=== PATIENT | female | born 1945 | race Caucasian/White ===

== ENCOUNTER 2017-08-25 14:07 | Emergency (ER) | payer OTHER ==
[~2017-08-25] VITALS: Ht 160 cm; Wt 95.0 kg
[~2017-08-25 14:07] MED LIST: ATEN1TAB73 PO; DYAZ37.52 PO; ENDO5TAB6 PO; FIBE625T3 PO; GABA100C4 PO; GLIP2.5T6 PO; LEVO150T7 PO; LOSA25TA31 PO; POTA-243 PO; VITA-13 PO; VITA10002 PO
[2017-08-25 14:10] VITALS: BP 183/80; PULSE 125; RESP 16; TEMP 98.7; O2SAT 95
[2017-08-25 16:25] VITALS: BP 149/88; PULSE 102; RESP 18; O2SAT 98
[2017-08-25] MEDS ORDERED: SODIUM CHLOR 0.9% 1000 ML INJ 1,000 ML IV SCH (16:32)
--- NOTE | 2017-08-25 16:32 | PD ---
HPI Chief Complaint: Abdominal Pain Time Seen by Provider: 16:03 Travel History International Travel<30 days: No Contact w/Intl Traveler<30days: No Traveled to known affect area: No History of Present Illness HPI The patient is a 72-year-old female who presents to the emergency department for nausea. The patient states she developed nausea 2-3 days ago. She also complains of a few episodes of dry heaves with the nausea, also notes a few episodes of loose stool. The patient does note some intermittent left lower quadrant abdominal pain. The patient does have a history of renal cell carcinoma and is currently followed by her oncologist, Dr. Horta. 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 Palliative treatment. The patient is also going to restart chemotherapy per her report. The patient does note a history of multiple abdominal surgeries including laparoscopic repair for a ventral hernia by Dr. Aren Hedrick and previous cholecystectomy. The patient does note intermittent chills and sweats. She denies any dysuria or cough. Symptoms are moderate, there are no current alleviating or exacerbating factors. She is able to tolerate liquid intake, but has decreased appetite over the last 2-3 days. PFSH Past Medical History Arthritis: No Asthma: No Blood Disorders: No Heart Rhythm Problems: No Cancer: Yes (LEFT KIDNEY--L NEPHRECTOMY 2005) Cardiovascular Problems: No High Cholesterol: No Chemotherapy: Yes (STARTING SOON) Chest Pain: No Congestive Heart Failure: No COPD: No Diabetes: No Patient Takes Glucophage: No Endocrine: Yes Gastrointestinal Disorders: Yes (HX GERD, DIVERTICULOSIS) GERD: No Glaucoma: No Genitourinary: No Hepatitis: No Hiatal Hernia: Yes Hypertension: Yes Immune Disorder: No Medical other: No Musculoskeletal: Yes (OSTEOARTHRITIS, LUMBAR DDD, LOWER BACK/LEFT LEG PAIN) Neurologic: No Psychiatric: No Reproductive: No Respiratory: No Myocardial Infarction: No Radiation Therapy: No Sleep Apnea: No Thyroid Disease: Yes Ulcer: No ?: Not Past Surgical History AICD: No Appendectomy: No Arteriovenous Shunt: No Body Medical Devices: 40 SCREWS WITH MESH L SIDE FROM HERNIA REPAIR Cardiac Surgery: No Cholecystectomy: Yes (1959) Ear Surgery: No Endocrine Surgery: No Eye Surgery: No Genitourinary Surgery: Yes (LEFT NEPHRECTOMY 2005) Gynecologic Surgery: Yes (TUBAL LIGATION) Insulin Pump: No Joint Replacement: Yes (R KNEE) Neurologic Surgery: No Oral Surgery: Yes (TRACHEOSTOMY) Pacemaker: No Thoracic Surgery: Yes (FUNDOLIPICATION 1997) Other Surgery: Yes Social History Alcohol Use: No Tobacco Use: No (QUIT 4 YEARS AGO) Substance Use: No Allergies-Medications (Allergen,Severity, Reaction): Coded Allergies: adhesive (Unverified Allergy, Severe, 08/25/17) STERISTRIPS codeine (Unverified Allergy, Severe, ABD. SPASMS, 08/25/17) aspirin (Unverified Adverse Reaction, Severe, N/V, 08/25/17) morphine (Unverified Adverse Reaction, Severe, VOMITING, 08/25/17) *MDRO Multi-Drug Resistant Organism (Verified Adverse Reaction, Unknown, 08/25/17) MRSA 2005 Sputum and Wound Uncoded Allergies: STERI STRIPS (Allergy, Mild, 11/21/06) Reported Meds & Prescriptions Reported Meds & Active Scripts Active Zofran Odt (Ondansetron Odt) 4 Mg Tab 4 Mg SL Q6HR PRN Review of Systems Except as stated in HPI: all other systems reviewed are Neg General / Constitutional: Positive: Chills, No: Fever Cardiovascular: No: Chest Pain or Discomfort Respiratory: No: Shortness of Breath Gastrointestinal: Positive: Nausea, Vomiting, Diarrhea, Abdominal Pain Genitourinary: No: Dysuria Musculoskeletal: No: Weakness Physical Exam Narrative GENERAL: Awake, alert, very pleasant 72-year-old female who appears her stated age and is in no acute respiratory distress. SKIN: Focused skin assessment warm/dry. HEAD: Atraumatic. Normocephalic. EYES: Pupils equal and round. No scleral icterus. No injection or drainage. ENT: No nasal bleeding or discharge. Upper and lower dentures in place. NECK: Trachea midline. No JVD. CARDIOVASCULAR: Regular rate and rhythm. No murmur appreciated. Heart rate in the 80s. RESPIRATORY: No accessory muscle use. Clear to auscultation. Breath sounds equal bilaterally. GASTROINTESTINAL: Abdomen soft, well-healed midline scar. Mild tenderness left lower quadrant. MUSCULOSKELETAL: No obvious deformities. No clubbing. No cyanosis. No edema. NEUROLOGICAL: Awake and alert. No obvious cranial nerve deficits. Motor grossly within normal limits. Normal speech. PSYCHIATRIC: Appropriate mood and affect; insight and judgment normal. Data Data Last Documented VS Vital Signs Date Time Temp Pulse Resp B/P (MAP) Pulse Ox O2 Delivery O2 Flow Rate FiO2 08/25/17 16:25 102 18 149/88 (108) 98 Room Air 08/25/17 14:10 98.7 Orders Orders Complete Blood Count With Diff (08/25/17 16:32) Comprehensive Metabolic Panel (08/25/17 16:32) Lipase (08/25/17 16:32) Lactic Acid (08/25/17 16:32) Urinalysis - C+S If Indicated (08/25/17 16:32) Ct Abd/Pel W/O Iv Contrast (08/25/17 16:32) Iv Access Insert/Monitor (08/25/17 16:32) Ecg Monitoring (08/25/17 16:32) Oximetry (08/25/17 16:32) Ondansetron Inj (Zofran Inj) (08/25/17 16:45) Sodium Chlor 0.9% 1000 Ml Inj (Ns 1000 M (08/25/17 16:32) Sodium Chloride 0.9% Flush (Ns Flush) (08/25/17 16:45) Electrocardiogram (08/25/17 16:32) Famotidine Inj (Pepcid Inj) (08/25/17 16:45) Hydromorphone Pf Inj (Dilaudid Pf Inj) (08/25/17 16:45) Hydromorphone Pf Inj (Dilaudid Pf Inj) (08/25/17 18:00) Labs Laboratory Tests Test 08/25/17 17:00 08/25/17 17:30 08/25/17 18:30 White Blood Count 11.0 TH/MM3 Red Blood Count 4.02 MIL/MM3 Hemoglobin 12.4 GM/DL Hematocrit 37.2 % Mean Corpuscular Volume 92.4 FL Mean Corpuscular Hemoglobin 30.8 PG Mean Corpuscular Hemoglobin Concent 33.3 % Red Cell Distribution Width 18.4 % Platelet Count 189 TH/MM3 Mean Platelet Volume 8.7 FL Neutrophils (%) (Auto) 67.0 % Lymphocytes (%) (Auto) 21.1 % Monocytes (%) (Auto) 8.8 % Eosinophils (%) (Auto) 2.3 % Basophils (%) (Auto) 0.8 % Neutrophils # (Auto) 7.4 TH/MM3 Lymphocytes # (Auto) 2.3 TH/MM3 Monocytes # (Auto) 1.0 TH/MM3 Eosinophils # (Auto) 0.3 TH/MM3 Basophils # (Auto) 0.1 TH/MM3 CBC Comment DIFF FINAL Differential Comment Blood Urea Nitrogen 9 MG/DL Creatinine 0.63 MG/DL Random Glucose 97 MG/DL Total Protein 7.5 GM/DL Albumin 3.7 GM/DL Calcium Level 10.5 MG/DL Alkaline Phosphatase 78 U/L Aspartate Amino Transf (AST/SGOT) 43 U/L Alanine Aminotransferase (ALT/SGPT) 30 U/L Total Bilirubin 0.8 MG/DL Sodium Level 135 MEQ/L Potassium Level 3.8 MEQ/L Chloride Level 100 MEQ/L Carbon Dioxide Level 25.0 MEQ/L Anion Gap 10 MEQ/L Estimat Glomerular Filtration Rate 93 ML/MIN Lipase 290 U/L Lactic Acid Level 1.4 mmol/L Urine Color LIGHT-YELLOW Urine Turbidity CLEAR Urine pH 7.0 Urine Specific [place] 1.004 Urine Protein NEG mg/dL Urine Glucose (UA) NEG mg/dL Urine Ketones NEG mg/dL Urine Occult Blood NEG Urine Nitrite NEG Urine Bilirubin NEG Urine Urobilinogen LESS THAN 2.0 MG/DL Urine Leukocyte Esterase NEG Microscopic Urinalysis Comment CULT NOT INDICATED MDM Medical Decision Making Medical Screen Exam Complete: Yes Emergency Medical Condition: Yes Medical Record Reviewed: Yes Interpretation(s) EKG reveals normal sinus rhythm with a rate of 78. Laboratory Tests Test 08/25/17 17:00 08/25/17 17:30 White Blood Count 11.0 TH/MM3 Red Blood Count 4.02 MIL/MM3 Hemoglobin 12.4 GM/DL Hematocrit 37.2 % Mean Corpuscular Volume 92.4 FL Mean Corpuscular Hemoglobin 30.8 PG Mean Corpuscular Hemoglobin Concent 33.3 % Red Cell Distribution Width 18.4 % Platelet Count 189 TH/MM3 Mean Platelet Volume 8.7 FL Neutrophils (%) (Auto) 67.0 % Lymphocytes (%) (Auto) 21.1 % Monocytes (%) (Auto) 8.8 % Eosinophils (%) (Auto) 2.3 % Basophils (%) (Auto) 0.8 % Neutrophils # (Auto) 7.4 TH/MM3 Lymphocytes # (Auto) 2.3 TH/MM3 Monocytes # (Auto) 1.0 TH/MM3 Eosinophils # (Auto) 0.3 TH/MM3 Basophils # (Auto) 0.1 TH/MM3 CBC Comment DIFF FINAL Differential Comment Blood Urea Nitrogen 9 MG/DL Creatinine 0.63 MG/DL Random Glucose 97 MG/DL Total Protein 7.5 GM/DL Albumin 3.7 GM/DL Calcium Level 10.5 MG/DL Alkaline Phosphatase 78 U/L Aspartate Amino Transf (AST/SGOT) 43 U/L Alanine Aminotransferase (ALT/SGPT) 30 U/L Total Bilirubin 0.8 MG/DL Sodium Level 135 MEQ/L Potassium Level 3.8 MEQ/L Chloride Level 100 MEQ/L Carbon Dioxide Level 25.0 MEQ/L Anion Gap 10 MEQ/L Estimat Glomerular Filtration Rate 93 ML/MIN Lipase 290 U/L Lactic Acid Level 1.4 mmol/L UA is unremarkable Differential Diagnosis Differential diagnosis includes hyponatremia, gastritis, pancreatitis, diverticulitis, UTI, pyelonephritis, electrolyte abnormality, acute renal failure, dehydration. Narrative Course IV was established, labs are drawn and sent, and the patient was placed on cardiac telemetry monitoring and continuous pulse oximetry monitoring. Noncontrast CT of the abdomen and pelvis was ordered. The patient was administered Dilaudid 0.5 mg intravenously, Zofran, Pepcid, and IV fluids. UA was sent to lab. The patient's CT of the abdomen and pelvis reveals no acute findings. The patient's sodium and electrolytes are unremarkable. The patient was reassessed at 6:30 PM, her symptoms had significantly improved. If UA is negative. Patient be discharged home with a prescription for Zofran. Diagnosis Primary Impression: Nausea Patient Instructions: General Instructions Additional Instructions: Please provide a patient a copy of her CT results and lab results at discharge. Follow-up with your primary physician. Return if symptoms worsen or progress. Medication as directed. Clear liquid fluids and advance as tolerated. Med/Other Pt SpecificInfo: Prescription(s) given Scripts Ondansetron Odt (Zofran Odt) 4 Mg Tab 4 MG SL Q6HR Y for Nausea/Vomiting, #10 TAB 0 Refills Prov: Piotr Cruz MD 08/25/17 Disposition: 01 DISCHARGE HOME Condition: Stable Piotr Cruz MD Aug 25, 2017 16:32
[2017-08-25] MEDS ORDERED: ONDANSETRON HCL 4 MG/2 ML VIAL IVP ONE (16:45)
[2017-08-25] MEDS ORDERED: FAMOTIDINE 20 MG/2 ML VIAL IV PUSH ONE (16:45)
[2017-08-25] MEDS ORDERED: HYDROmorphone HCL PF 1 MG/ML VIAL IVS ONE (16:45)
[2017-08-25] MEDS ORDERED: SODIUM CHLORIDE 0.9% FLUSH 10 ML FLUSH IV FLUSH PRN (16:45)
--- NOTE | 2017-08-25 17:40 | RADRPT ---
EXAM DATE/TIME: 08/25/2017 17:08 [facility] COMPARISON: No previous studies available for comparison. INDICATIONS : Upset stomach with nausea past few days. ORAL CONTRAST: No oral contrast ingested. RADIATION DOSE: 12.82 CTDIvol (mGy) MEDICAL HISTORY : Hypertension. Hernia, hiatal. Renal cancer SURGICAL HISTORY : Cholecystectomy. Nephrectomy, left.Left hernia repair ENCOUNTER: Initial ACUITY: 3 days PAIN SCALE: 0/10 LOCATION: abdomen TECHNIQUE: Volumetric scanning of the abdomen and pelvis was performed. Using automated exposure control and ad justment of the mA and/or kV according to patient size, radiation dose was kept as low as reasonably achievable to obtain optimal diagnostic quality images. DICOM format image data is available electro nically for review and comparison. FINDINGS: The patient's left arm is superimposed upon the upper abdomen which does create some image degradatio n. The study is still diagnostic. LOWER LUNGS: The visualized lower lungs are clear. LIVER: No focal lesions for noncontrast technique. No dilation of the biliary system. Cholecystectomy. SPLEEN: Normal size without lesion. PANCREAS: Within normal limits. KIDNEYS: The right kidney is grossly unremarkable for noncontrast technique. Left nephrectomy. ADRENAL GLANDS: Within normal limits. VASCULAR: There is no aortic aneurysm. BOWEL/MESENTERY: No dilated loops of small or large bowel. ABDOMINAL WALL: Left lateral abdominal wall hernia with smooth protrusion of loops of bowel and mesentery with intact surgical repair including anchor screws and mesh. RETROPERITONEUM: There is no lymphadenopathy. BLADDER: No wall thickening or mass. REPRODUCTIVE: Within normal limits. INGUINAL: There is no lymphadenopathy or hernia. MUSCULOSKELETAL: Prominent degenerative changes in the posterior elements of the lumbar spine. CONCLUSION: 1. No dilated loops of small or large bowel. 2. Surgically repaired left lateral abdominal wall hernia containing multiple loops of bowel. The me sh is intact. 3. Left nephrectomy. Marin Hodge MD on August 25, 2017 at 17:29 Board Certified Radiologist. This report was verified electronically.
[2017-08-25 17:41] LABS: AUTOMATED NEUTROPHIL # 7.4 TH/MM3 (1.8-7.7); BASOPHIL # 0.1 TH/MM3 (0-0.2); BASOPHIL % 0.8 % (0.0-2.0); EOSINOPHIL # 0.3 TH/MM3 (0-0.4); EOSINOPHIL % 2.3 % (0.0-4.0); HEMATOCRIT 37.2 % (35.0-46.0); HEMOGLOBIN 12.4 GM/DL (11.6-15.3); LYMPH % 21.1 % (9.0-44.0); LYMPHOCYTE # 2.3 TH/MM3 (1.0-4.8); MEAN CELL VOLUME 92.4 FL (80.0-100.0); MEAN CORPUSCULAR HEMOGLOBIN 30.8 PG (27.0-34.0); MEAN CORPUSCULAR HGB CONC 33.3 % (32.0-36.0); MEAN PLATELET VOLUME 8.7 FL (7.0-11.0); MONO % 8.8 % (0.0-8.0); PLATELET COUNT 189 TH/MM3 (150-450); RED BLOOD COUNT 4.02 MIL/MM3 (4.00-5.30); RED CELL DISTRIBUTION WIDTH 18.4 % (11.6-17.2)
[2017-08-25 17:50] LABS: ALT (GPT) 30 U/L (10-53)
[2017-08-25 17:52] LABS: ALKALINE PHOSPHATASE 78 U/L (45-117); TOTAL BILIRUBIN ADULT 0.8 MG/DL (0.2-1.0); TOTAL PROTEIN 7.5 GM/DL (6.4-8.2)
[2017-08-25 17:54] LABS: ALBUMIN 3.7 GM/DL (3.4-5.0); AST (GOT) 43 U/L (15-37); BLOOD UREA NITROGEN 9 MG/DL (7-18); CALCIUM 10.5 MG/DL (8.5-10.1); CHLORIDE 100 MEQ/L (98-107); CREATININE 0.63 MG/DL (0.50-1.00); GLOMERULAR FILTRATION RATE 93 ML/MIN (>89); GLUCOSE,RANDOM 97 MG/DL (74-106); LIPASE 290 U/L (73-393); SODIUM (NA) 135 MEQ/L (136-145)
[2017-08-25] MEDS ORDERED: HYDROmorphone HCL PF 0.5 MG/0.5 ML SYRINGE IV PUSH ONE (18:00)
[2017-08-25] MEDS ORDERED: ZOFR4TAB3 SL (18:38)
[2017-08-25 19:02] LABS: BILIRUBIN, URINE NEG (NEG); BLOOD, URINE NEG (NEG); GLUCOSE,URINE NEG (NEG); KETONE, URINE NEG (NEG); NITRITE,URINE NEG (NEG); URINE COLOR LIGHT-YELLOW (YELLW/STRAW); URINE LEUKOCYTE ESTERASE NEG (NEG)
--- NOTE | 2017-08-26 15:21 | EKG ---
Date Performed: 08/25/2017 Time Performed: 17:46:05 PTAGE: 72 years EKG: Sinus rhythm NORMAL ECG Compared to prior tracing no significant change PREVIOUS TRACING : 08/06/2006 16.22 DOCTOR: Jose Christina Interpretating Date/Time 08/26/2017 15:20:30
== END 2017-08-25 19:45 | disposition home or self-care (01) ==
LOC: NEPE 14:07
DX: C64.2 Malignant neoplasm of left kidney, except renal pelvis (principal); C79.51 Secondary malignant neoplasm of bone; R11.0 Nausea; I10 Essential (primary) hypertension; Z87.891 Personal history of nicotine dependence; Z90.5 Acquired absence of kidney
CPT/HCPCS: 74176; 80053; 81001; 83605; 83690; 85025; 93005; 96374; 96375; 99285; J1170; J2405; J7030